=== PATIENT | male | born 1960 | race Caucasian/White ===

== ENCOUNTER 2020-09-28 03:40 | Emergency (ER) | payer MEDICAID ==
[~2020-09-28] VITALS: Ht 165.1 cm; Wt 80.0 kg
[2020-09-28] MEDS ORDERED: LORazepam 2 MG/ML, 1ML ONE (03:53)
[2020-09-28] MEDS ORDERED: ONDANSETRON 2MG/ML, 2ML ONE (03:53)
[2020-09-28] MEDS ORDERED: MORPHINE SULFATE 4 MG/ML, 1ML ONE (03:53)
[2020-09-28] MEDS ORDERED: SODIUM CHLORIDE 0.9% 1,000ML IVBOLUS ONE (04:00)
[2020-09-28] MEDS ORDERED: SODIUM CHLORIDE FLUSH 10ML SYR IVF ONE (04:00)
[2020-09-28] MEDS ORDERED: MORPHINE SULFATE 4 MG/ML, 1ML IVPush PRN (04:00)
[2020-09-28] MEDS ORDERED: LORazepam 2 MG/ML, 1ML IVPush ONE (04:00)
[2020-09-28] MEDS ORDERED: ONDANSETRON 2MG/ML, 2ML IVPush ONE (04:00)
[2020-09-28 04:19] LABS: BASOPHILS % (AUTO) 1 % (0-1); EOSINOPHILS % (AUTO) 4 % (1-7); LYMPHOCYTES % (AUTO) 48 % (22-44); MEAN CORPUSCULAR HEMOGLOBIN 32.3 pg (27.5-34.5); MEAN PLATELET VOLUME 7.4 fL (7.4-10.4); MONOCYTES % (AUTO) 6 % (2-9); NEUTROPHILS % (AUTO) 41 % (42-75); PLATELET COUNT 200 x10^3/uL (130-400); RED BLOOD COUNT 4.19 x10^6/uL (4.38-5.82)
[2020-09-28 04:27] LABS: ALBUMIN 3.3 g/dL (3.4-5.0); ANION GAP 7 mmol/L (5-15); CALCIUM 8.3 mg/dL (8.5-10.1); CHLORIDE 111 mmol/L (98-107)
[2020-09-28 04:34] LABS: ALANINE AMINOTRANSFERASE 28 U/L (12-78); ALKALINE PHOSPHATASE 75 U/L (45-117); BILIRUBIN,TOTAL 0.4 mg/dL (0.2-1.0); CREATININE 0.79 mg/dL (0.7-1.3); TOTAL PROTEIN 7.4 g/dL (6.4-8.2); TROPONIN I < 0.015 ng/mL (0.000-0.045)
--- NOTE | 2020-09-28 05:37 | NUR ---
Patient given discharge instructions and they have confirmed that they understand the instructions. Patient ambulatory with steady gait. NAD, all questions answered appropriately, denies additional needs at this time. No personal belongings left in room after discharge.
[2020-09-28 05:38] VITALS: BP 125/75
== END 2020-09-28 05:46 | disposition home or self-care (01) ==
LOC: ED 05:20
DX: R07.2 Precordial pain (principal); F41.1 Generalized anxiety disorder; E78.00 Pure hypercholesterolemia, unspecified
CPT/HCPCS: 36415; 71045; 80053; 80320; 83690; 84484; 85025; 93005; 96361; 96374; 96375; 99285; J2060; J2270; J2405; J7030; G0480